=== PATIENT | female | born 1960 | race Caucasian/White ===

== ENCOUNTER 2020-03-19 20:12 | Emergency (ER) | payer OTHER, SELFPAY ==
--- NOTE | ~2020-03-19 | CT_ITS ---
EXAMINATION: CT ABDOMEN AND PELVIS WITHOUT CONTRAST CLINICAL INFORMATION: Bilateral flank pain. COMPARISON: None. TECHNIQUE: Contiguous axial thin section helical images of the abdomen and pelvis were performed without oral or IV contrast. The data set was reformatted in the coronal and sagittal planes and reviewed on an independent workstation. DLP: 766 mGy-cm. FINDINGS: There is mild dependent bibasilar atelectasis. The visualized lung bases are otherwise clear. The visualized portions of the heart are unremarkable. The liver is of normal size and attenuation without focal lesions nor intrahepatic biliary ductal dilation. A normal gallbladder is identified. There is no wall thickening or discernible pericholecystic fluid. The spleen, pancreas, adrenal glands are unremarkable. Both kidneys are of normal size and attenuation without hydronephrosis or nephrolithiasis. There is no abdominal free fluid. There is neither mesenteric nor retroperitoneal lymphadenopathy. Normal unopacified loops of small and large bowel are identified. There is no pelvic free fluid. The urinary bladder is unremarkable. There is neither pelvic nor inguinal lymphadenopathy. Bone windows: Neither sclerotic nor lytic bone lesions are identified. CT/CT abdomen pelvis wo con IMPRESSION: Neither acute abdominal nor pelvic inflammatory nor infectious processes. Neither hydronephrosis nor nephrolithiasis. Automated exposure control (Care Dose) Adjustment of the mA and/or kv according to patient size (this includes techniques or standardized protocols for targeted exams where dose is matched to indication / reason for exam; i.e. extremities or head).
[2020-03-19 20:48] VITALS: BP 148/80; PULSE 100; RESP 18; TEMP 37.3; O2SAT 97; BMI 33.6
[2020-03-19 22:41] LABS: MANUAL DIFF FLAG NO
[2020-03-19 22:44] LABS: Basophils Percent Auto 0.3 % (0-2); Eosinophils Absolute Auto 0.1 X10*3/uL (0.0-0.4); Eosinophils Percent Auto 1.1 % (0-4); Hematocrit 35.2 % (37-47); Hemoglobin 11.7 g/dl (12.0-16.0); Imm Gran Abs Auto 0.01 X10*3/uL (0.00-0.03); Imm Gran Pct Auto 0.1 % (0.0-0.4); Lymphocytes Absolute Auto 3.4 X10*3/uL (1.2-4.9); Mean Corpuscular HGB Conc 33.2 g/dl (31.0-35.0); Mean Corpuscular Hemoglobin 29.5 pg (27.0-33.0); Mean Corpuscular Volume 88.7 fL (80-98); Monocytes Absolute Auto 0.5 X10*3/uL (0.1-1.2); Monocytes Percent Auto 7.2 % (2-11); Neutrophils Absolute Auto 3.5 X10*3/uL (2.0-8.3); Neutrophils Percent Auto 46.3 % (45-73); Platelet Count 284 X10*3/uL (160-400); Red Blood Count 3.97 X10*6/uL (4.20-5.50); Red Cell Distribution Width 12.7 % (11.0-16.0); White Blood Count 7.5 X10*3/uL (4.8-10.8)
[2020-03-19 22:45] LABS: Glucose Urine UA NEG (NEG); Leukocyte Esterase Urine NEG (NEG); Nitrite Urine NEG (NEG); PH 5.5 (5.0-8.0); Specific Gravity - Urine >= 1.030 (1.005-1.025); Urine Blood NEG (NEG); Urine Ketones 5 MG/DL (NEG); Urine Protein NEG (NEG-TRACE)
[2020-03-19 22:48] LABS: Appearance Urine CLEAR; Color Urine YELLOW
[2020-03-19 23:06] LABS: Alanine Aminotransferase 19 U/L (0-31); Albumin Level 4.3 g/dL (3.5-5.0); Alkaline Phosphatase 102 U/L (39-117); Anion Gap 11 (12-20); Aspartate Amino Transferase 19 U/L (5-31); Bilirubin Direct < 0.2 mg/dL (0.0-0.5); Bilirubin Total 0.2 mg/dL (0.0-1.0); Blood Urea Nitrogen 23 mg/dL (9-16); Calcium 9.2 mg/dL (8.4-10.2); Carbon Dioxide 25 mmol/L (22-29); Chloride 109 mmol/L (96-108); Creatinine Clr Calc Pharmacy 51.2; Estimated Glomerular Filt Rate 46; Glucose Random 105 mg/dL (60-115); Lipase 33 U/L (8-78); Potassium 4.2 mmol/L (3.3-5.1); Sodium 141 mmol/L (135-145)
[2020-03-20 01:24] VITALS: BP 149/72; PULSE 65; RESP 18; TEMP 36.2; O2SAT 99
--- NOTE | 2020-03-20 03:00 | ED_ITS ---
HPI - General Adult General Chief complaint: Abdominal Pain Stated complaint: FLANK PAIN Time Seen by Provider: 03/20/20 02:53 Source: patient Mode of arrival: ambulatory Limitations: no limitations History of Present Illness HPI narrative: Patient comes to emergency room complaining of bilateral flank pain. Patient states it started approximately 2 weeks ago, intermittent. Patient states she has been seen and they states a few days ago, she was told that her creatinine is elevated. Patient denies dysuria, no fever or chills. At this time, patient states she has had the pain constantly bilaterally for last 7 hours. MD complaint: Bilateral flank pain Related Data Home Medications Medication Instructions Recorded Confirmed omeprazole 20 mg capsule,delayed 20 mg PO DAILY 11/11/19 11/11/19 release valacyclovir 500 mg tablet 500 mg PO DAILY 11/11/19 11/11/19 Previous Rx's Medication Instructions Recorded losartan 50 mg tablet 50 mg PO DAILY #90 tab 02/07/20 cyclobenzaprine 10 mg PO TID PRN #10 tab 03/20/20 Allergies Allergy/AdvReac Type Severity Reaction Status Date / Time ascorbic acid Allergy Unknown Unknown Verified 03/19/20 20:48 Review of Systems Review of Systems: Constitutional : No Weight loss, No Fever, No Chills, No Night Sweats, No Fatigue, No Malaise ENT/Mouth : No Hearing loss, No Ear Pain, No Nasal Congestion, No Sinus Pain, No Hoarseness, No sore throat, No Rhinorrhea, No Swallowing Difficulty Eyes: No Eye Pain, No Swelling, No Redness, No Foreign Body, No Discharge, No Vision Changes Cardiovascular : No Chest Pain, No SOB, No Dyspnea on Exertion, No Orthopnea, No Edema, No Palpitations Respiratory : No Cough, No Sputum, No Wheezing, No Smoke Exposure, No Dyspnea Gastrointestinal : No Nausea, No Vomiting, No Diarrhea, No Constipation, No abdominal Pain, No Hematochezia, No Melena, bilateral flank pain Genitourinary : no irregular bleeding, No Dysuria, No Urinary Frequency, No Hematuria, No Urinary Incontinence, No Urgency, No Flank Pain, No Urinary Flow Changes, No Hesitancy Musculoskeletal : No joint pain, No Myalgias, No Joint Swelling Skin : No Skin Lesions, No rash Neuro : No Weakness, No Numbness, No Paresthesias, No Loss of Consciousness, No Dizziness, No Headache Psych : No Anxiety/Panic, No Depression, No SI/HI/AH/VH, No Social Issues, Heme/Lymph: No Bruising, No Bleeding,No Lymphadenopathy Endocrine : No Polyuria, No Polydipsia, No Temperature Intolerance [facility] Past Medical History Medical History Jean esophagus History of mammogram Hyperlipidemia Mammogram normal (~05/2018) Normal colonoscopy (~06/08/18) Normal Pap smear Surgical History H/O colonoscopy History of esophagogastroduodenoscopy (EGD) Family History Family History (Updated 11/11/19 @ 09:00 by Bharti Myles [facility]) Father No problems noted. 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 Oriented X3. No acute distress. Well-appearing Eyes: Pupils equal, round and reactive to light. ENT: Pharynx normal. Neck: Normal inspection. Neck supple. No lymph nodes noted. No crepitus CVS: Normal heart rate and rhythm. Pulses normal. Normal S1 and S2 Respiratory: No respiratory distress. Breath sounds normal. No Wheezing. No rales Abdomen: Soft and nontender. No rigidity. No distention. good BS x4, negative CVA tenderness bilaterally Skin: Skin warm and dry. Normal skin color. Normal skin turgor. Extremities: No lower extremity edema. No lower extremity edema. No Lacerations. No Rash Neuro: Oriented X 3. No motor deficit. No sensory deficit. Moving all extermities. No slurred speech. Course Course Course Narrative: Discussed the CT scan and labs with the patient, patient instructed to follow-up with the primary care physician. Patient has bilateral back pain likely secondary to muscle spasms. Medical Decision Making Lab Data Result diagrams: 03/19/20 22:37 03/19/20 22:37 Labs: Lab Results 03/19/20 03/19/20 03/19/20 Range/Units 22:37 22:37 22:37 WBC 7.5 (4.8-10.8) X10*3/uL RBC 3.97 L (4.20-5.50) X10*6/uL Hgb 11.7 L (12.0-16.0) g/dl Hct 35.2 L (37-47) % MCV 88.7 (80-98) fL MCH 29.5 (27.0-33.0) pg MCHC 33.2 (31.0-35.0) g/dl RDW 12.7 (11.0-16.0) % Plt Count 284 (160-400) X10*3/uL MPV 10.0 (9.4-12.3) fL Immature Gran % (Auto) 0.1 (0.0-0.4) % Neut % (Auto) 46.3 (45-73) % Lymph % (Auto) 45.0 H (20-40) % [place] % (Auto) 7.2 (2-11) % Eos % (Auto) 1.1 (0-4) % Baso % (Auto) 0.3 (0-2) % Lymph # (Auto) 3.4 (1.2-4.9) X10*3/uL [place] # (Auto) 0.5 (0.1-1.2) X10*3/uL Eos # (Auto) 0.1 (0.0-0.4) X10*3/uL Baso # (Auto) 0.0 (0.0-0.2) X10*3/uL Abs Immat Gran (auto) 0.01 (0.00-0.03) X10*3/uL Absolute Neuts (auto) 3.5 (2.0-8.3) X10*3/uL Absolute Nucleated RBC 0.000 (0.0-0.012) X10*3/uL Nucleated RBC % (auto) 0.0 (0.0-0.2) /100WBC Sodium 141 (135-145) mmol/L Potassium 4.2 (3.3-5.1) mmol/L Chloride 109 H (96-108) mmol/L Carbon Dioxide 25 (22-29) mmol/L Anion Gap 11 L (12-20) BUN 23 H (9-16) mg/dL Creatinine 1.20 (0.5-1.4) mg/dL Estim Creat Clear Calc 51.2 Estimated GFR 46 Random Glucose 105 (60-115) mg/dL Calcium 9.2 (8.4-10.2) mg/dL Total Bilirubin 0.2 (0.0-1.0) mg/dL Direct Bilirubin < 0.2 (0.0-0.5) mg/dL AST 19 (5-31) U/L ALT 19 (0-31) U/L Alkaline Phosphatase 102 (39-117) U/L Total Protein 7.0 (6.5-8.0) g/dL Albumin 4.3 (3.5-5.0) g/dL Lipase 33 (8-78) U/L Urine Color YELLOW Urine Appearance CLEAR Urine pH 5.5 (5.0-8.0) Ur Specific [place] >= 1.030 H (1.005-1.025) Urine Protein NEG (NEG-TRACE) MG/DL Urine Glucose (UA) NEG (NEG) MG/DL Urine Ketones 5 (NEG) MG/DL Urine Blood NEG (NEG) Urine Nitrite NEG (NEG) Ur Leukocyte Esterase NEG (NEG) Imaging Data CT scan - abdomen: Radiologist's impression: FINDINGS: There is mild dependent bibasilar atelectasis. The visualized lung bases are otherwise clear. The visualized portions of the heart are unremarkable. The liver is of normal size and attenuation without focal lesions nor intrahepatic biliary ductal dilation. A normal gallbladder is identified. There is no wall thickening or discernible pericholecystic fluid. The spleen, pancreas, adrenal glands are unremarkable. Both kidneys are of normal size and attenuation without hydronephrosis or nephrolithiasis. There is no abdominal free fluid. There is neither mesenteric nor retroperitoneal lymphadenopathy. Normal unopacified loops of small and large bowel are identified. There is no pelvic free fluid. The urinary bladder is unremarkable. There is neither pelvic nor inguinal lymphadenopathy. Bone windows: Neither sclerotic nor lytic bone lesions are identified. CT/CT abdomen pelvis wo con IMPRESSION: Neither acute abdominal nor pelvic inflammatory nor infectious processes. Neither hydronephrosis nor nephrolithiasis. Discharge Plan Discharge Clinical Impression: Bilateral back pain Qualifiers: Back pain location: thoracic back pain Chronicity: unspecified Qualified Code(s): M54.6 - Pain in thoracic spine Patient Disposition: Home, Self-Care Instructions: Muscle Spasm (ED) Additional Instructions: Please follow-up with your primary care physician tomorrow. If you have any worsening or new symptoms, please return to the emergency room or call 911 Prescriptions: New cyclobenzaprine 10 mg tablet 10 mg PO TID PRN (Reason: muscle spasm) Qty: 10 RF: 0 No Action losartan 50 mg tablet 50 mg PO DAILY Qty: 90 RF: 3 valacyclovir [Valtrex] 500 mg tablet 500 mg PO DAILY RF: 0 omeprazole 20 mg capsule,delayed release(DR/EC) 20 mg PO DAILY RF: 0
== END 2020-03-20 04:11 | disposition home or self-care (01) ==
PROVIDERS: Emergency Provider Emergency Medicine; PCP Internal Medicine
DX: M54.6 Pain in thoracic spine (principal); R10.9 Unspecified abdominal pain; Z79.899 Other long term (current) drug therapy
CPT/HCPCS: 36415; 74176; 80048; 80076; 81003; 83690; 85025; 99283; 99284

== ENCOUNTER 2020-04-27 07:57 | Outpatient (REF) | payer OTHER, SELFPAY ==
--- NOTE | ~2020-04-27 | US_ITS ---
EXAMINATION: US ABDOMEN COMPLETE CLINICAL INFORMATION: Unspecified abdominal pain. COMPARISON: CT abdomen and pelvis 03/20/2020. Ultrasound abdomen complete 07/14/2018. TECHNIQUE: Real-time imaging of the abdominal viscera. FINDINGS: PANCREAS: Normal. ABDOMINAL AORTA: The proximal, mid, and distal segments are normal in caliber. INFERIOR VENA CAVA: Visualized portions are normal. LIVER: The liver is normal in size and smooth in contour. Although the hepatic parenchymal echogenicity appears borderline increased, there is no hepatic steatosis suggested on recent noncontrast CT. The parenchyma areas homogeneous. No focal hepatic parenchymal lesion. No intrahepatic ductal dilatation. Color Doppler shows portal flow towards the liver. GALLBLADDER: Normal. The gallbladder is physiologically distended without evidence of stones, sludge, polyps, wall thickening or pericholecystic fluid. COMMON BILE DUCT: Normal in caliber measuring 0.4 cm in diameter. RIGHT KIDNEY: Normal. No hydronephrosis. No renal calculi or focal parenchymal lesions. The kidney measures 10.0 cm in maximum dimension. LEFT KIDNEY: Normal. No hydronephrosis. No renal calculi or focal parenchymal lesions. The kidney measures 9.9 cm in maximum dimension. SPLEEN: Normal. The spleen measures 8.0 cm in maximum dimension. FREE FLUID: None. US/US abdomen complete IMPRESSION: 1. No cholelithiasis or ductal dilatation. 2. No hydronephrosis.
== END 2020-04-27 07:58 | disposition home or self-care (01) ==
LOC: HO.US 07:57
PROVIDERS: PCP Internal Medicine; Visit Provider Internal Medicine
DX: R10.9 Unspecified abdominal pain (principal); N28.9 Disorder of kidney and ureter, unspecified; E78.5 Hyperlipidemia, unspecified; I10 Essential (primary) hypertension
CPT/HCPCS: 76700

== ENCOUNTER 2020-04-30 08:04 | Outpatient (REF) | payer OTHER, SELFPAY ==
[2020-04-30 11:19] LABS: Hematocrit 36.7 % (37-47); Immature Retic Fraction 9.3 % (3.0-15.9); Mean Corpuscular HGB Conc 32.7 g/dl (31.0-35.0); Mean Corpuscular Hemoglobin 29.3 pg (27.0-33.0); Mean Corpuscular Volume 89.5 fL (80-98); Mean Platelet Volume 10.9 fL (9.4-12.3); Platelet Count 277 X10*3/uL (160-400); Red Cell Distribution Width 12.8 % (11.0-16.0); Reticulocyte Percent 1.6 % (0.5-1.8); Reticulocytes Absolute 0.064 X10*6/uL (0.026-0.095); White Blood Count 4.8 X10*3/uL (4.8-10.8)
[2020-04-30 11:45] LABS: Alanine Aminotransferase 21 U/L (0-31); Alkaline Phosphatase 88 U/L (39-117); Anion Gap 15 (12-20); Aspartate Amino Transferase 19 U/L (5-31); Bilirubin Total 0.2 mg/dL (0.0-1.0); Blood Urea Nitrogen 18 mg/dL (9-16); Carbon Dioxide 23 mmol/L (22-29); Chloride 107 mmol/L (96-108); Estimated Glomerular Filt Rate > 60; Glucose Fasting 103 mg/dL (60-99); Iron 76 mcg/dL (30-160); Percent Iron Saturation 25 % (15-50); Potassium 4.2 mmol/L (3.3-5.1); Sodium 141 mmol/L (135-145); Total Iron Binding Capacity 310 mcg/dL (228-428); Total Protein 6.7 g/dL (6.5-8.0); Unsaturated Iron Binding 234 ug/dL
[2020-04-30 12:27] LABS: Glucose Urine UA NEG (NEG); Leukocyte Esterase Urine NEG (NEG); Nitrite Urine NEG (NEG); PH 5.5 (5.0-8.0); Specific Gravity - Urine >= 1.030 (1.005-1.025); Urine Blood NEG (NEG); Urine Ketones NEG (NEG); Urine Protein NEG (NEG-TRACE)
[2020-04-30 12:39] LABS: Appearance Urine CLEAR; Color Urine YELLOW
== END 2020-04-30 08:05 | disposition home or self-care (01) ==
LOC: HO.HMGCLDS 08:04
PROVIDERS: PCP Internal Medicine; Visit Provider Internal Medicine
DX: R10.9 Unspecified abdominal pain (principal); E78.5 Hyperlipidemia, unspecified; I10 Essential (primary) hypertension; N28.9 Disorder of kidney and ureter, unspecified
CPT/HCPCS: 36415; 80053; 81003; 83540; 85027; 85045

== ENCOUNTER 2021-08-14 08:27 | Outpatient (REF) | payer OTHER, SELFPAY ==
[2021-08-14 11:30] LABS: Appearance Urine CLEAR; Color Urine YELLOW; Glucose Urine UA NEG (NEG); Leukocyte Esterase Urine NEG (NEG); Nitrite Urine NEG (NEG); PH 5.5 (5.0-8.0); Urine Blood NEG (NEG); Urine Ketones NEG (NEG); Urine Protein NEG (NEG-TRACE)
[2021-08-14 11:31] LABS: MANUAL DIFF FLAG NO
[2021-08-14 11:45] LABS: Basophils Percent Auto 0.6 % (0-2); Eosinophils Absolute Auto 0.1 X10*3/uL (0.0-0.4); Eosinophils Percent Auto 1.3 % (0-4); Hematocrit 37.2 % (37.0-47.0); Hemoglobin 12.4 g/dl (12.0-16.0); Imm Gran Abs Auto 0.01 X10*3/uL (0.00-0.03); Imm Gran Pct Auto 0.2 % (0.0-0.4); Lymphocytes Absolute Auto 2.6 X10*3/uL (1.2-4.9); Lymphocytes Percent Auto 48.6 % (20-40); Mean Corpuscular HGB Conc 33.3 g/dl (31.0-35.0); Mean Corpuscular Hemoglobin 29.2 pg (27.0-33.0); Mean Corpuscular Volume 87.5 fL (80.0-98.0); Mean Platelet Volume 10.7 fL (9.4-12.3); Monocytes Absolute Auto 0.3 X10*3/uL (0.1-1.2); Monocytes Percent Auto 6.3 % (2-11); Neutrophils Absolute Auto 2.3 x10*3/uL (2.0-8.3); Platelet Count 296 X10*3/uL (160-400); Red Blood Count 4.25 X10*6/uL (4.20-5.50); Red Cell Distribution Width 12.9 % (11.0-16.0); White Blood Count 5.4 X10*3/uL (4.8-10.8)
[2021-08-14 11:54] LABS: RBC Urine 0 /HPF (0); WBC Urine 0 /HPF (0-4)
[2021-08-14 12:01] LABS: Alanine Aminotransferase 24 U/L (0-31); Albumin Level 4.2 g/dL (3.5-5.0); Alkaline Phosphatase 101 U/L (39-117); Anion Gap 10 (12-20); Aspartate Amino Transferase 19 U/L (5-31); Bilirubin Total 0.4 mg/dL (0.0-1.0); Blood Urea Nitrogen 19 mg/dL (9-16); Calcium 9.2 mg/dL (8.4-10.2); Carbon Dioxide 24 mmol/L (22-29); Chloride 107 mmol/L (96-108); Cholesterol 218 mg/dL; Estimated Glomerular Filt Rate 58; Glucose Fasting 102 mg/dL (60-99); HDL Cholesterol 59 mg/dL; LDL Cholesterol Calculated 146 mg/dl; Potassium 4.4 mmol/L (3.3-5.1); Sodium 137 mmol/L (135-145); Total Protein 6.9 g/dL (6.5-8.0); Triglycerides 68 mg/dL
[2021-08-14 12:28] LABS: TSH reflex Free T4 2.29 uIU/mL (0.32-4.0); Vitamin D 25-OH Total 25.5 ng/mL (>30)
[2021-08-14 12:41] LABS: Vitamin B12 451 pg/mL (200-900)
== END 2021-08-14 08:28 | disposition home or self-care (01) ==
LOC: HO.HMGCLDS 08:27
PROVIDERS: Visit Provider Internal Medicine
DX: E78.5 Hyperlipidemia, unspecified (principal); I10 Essential (primary) hypertension; Z00.00 Encounter for general adult medical examination without abnormal findings
CPT/HCPCS: 36415; 80053; 80061; 81001; 82306; 82607; 82746; 84443; 85025

== ENCOUNTER 2021-10-08 08:27 | Outpatient (REF) | payer OTHER, SELFPAY ==
--- NOTE | ~2021-10-08 | US_ITS ---
EXAMINATION: US ABDOMEN COMPLETE CLINICAL INFORMATION: Unspecified abdominal pain. COMPARISON: Ultrasound abdomen complete 04/27/2020 and 07/14/2018. CT abdomen and pelvis 03/20/2020. TECHNIQUE: Real-time imaging of the abdominal viscera. FINDINGS: PANCREAS: The visualized proximal portion of the pancreas is unremarkable. The distal portion is obscured secondary to overlying bowel gas. ABDOMINAL AORTA: The proximal, mid, and distal segments are normal in caliber. INFERIOR VENA CAVA: Visualized portions are normal. LIVER: The liver is normal in size. The liver contour is normal. There is diffusely increased liver parenchymal echogenicity, consistent with hepatic steatosis. No focal hepatic lesion. There is no intrahepatic biliary duct dilatation seen. GALLBLADDER: The gallbladder is physiologically distended without evidence of stones, sludge, polyps, wall thickening or pericholecystic fluid. No right upper quadrant tenderness reported during the exam. COMMON BILE DUCT: Normal in caliber measuring 0.4 cm in diameter. RIGHT KIDNEY: No hydronephrosis. No renal calculi or focal parenchymal lesions. The kidney measures 9.2 cm in maximum dimension. LEFT KIDNEY: No hydronephrosis. No renal calculi or focal parenchymal lesions. The kidney measures 9.0 cm in maximum dimension. SPLEEN: Normal. The spleen measures 8.8 cm in maximum dimension. FREE FLUID: None. US/US abdomen complete IMPRESSION: Increased hepatic echogenicity consistent with steatosis. No additional abnormality identified.
== END 2021-10-08 08:28 | disposition home or self-care (01) ==
LOC: HO.US 08:27
PROVIDERS: Visit Provider Internal Medicine
DX: R10.9 Unspecified abdominal pain (principal)
CPT/HCPCS: 76700

== ENCOUNTER 2022-08-19 10:33 | Outpatient (AMB) | payer OTHER, SELFPAY ==
--- NOTE | 2022-08-19 10:41 | MHC.PC.OV ---
Vital Signs 08/19/22 10:43 Height 5 ft 4 in Weight 213 lb BMI 36.6 BP 120/74 Blood Pressure Location Lt brachial Position Sitting Pulse 73 Pulse Source Pulse Oximeter Pulse Oximetry (%) 96 Oxygen Delivery Method Room Air Intake Visit Reasons: Annual PE Intake Note: Pt is here today for PE. Allergies ascorbic acid Allergy (Unknown, Verified 08/19/22 10:46) Rash Medication List - Last Reconciled 08/19/22 by Jacy Llanos MD amlodipine 7.5 mg PO DAILY compress.stocking,knee,reg,lrg 10-20 mmHg omeprazole 20 mg PO DAILY valacyclovir (Valtrex) 500 mg PO DAILY Tobacco use date assessed: 08/19/22 Dental Screening Dental Screen Date: 08/19/22 Did you have a dental visit in the last 12 months?: Yes Did you have a dental problem in the last 6 months where you did not have access to dental care?: No Was dental information given to patient?: Patient has dentist HPI Annual PE HPI Details Patient presents for physical. She reports intermittent right upper quadrant abdominal discomfort worse after eating on and off a few times a month. Patient also complains of lower abdominal and pelvic pressure and increased urinary frequency but no dysuria, back pain,hematuria fever chills change in bowel habits. [facility] Medical History Abdominal pain Jean esophagus History of mammogram Hyperlipidemia Mammogram normal (~05/2018) Normal colonoscopy (~06/08/18) Normal Pap smear Renal insufficiency Surgical History H/O colonoscopy History of appendectomy History of esophagogastroduodenoscopy (EGD) Family History Father Asthma Mother HTN (hypertension) Afib Social History Housing: House Alcohol intake: never Patient Tobacco Use Status: Never used Tobacco e-Cigarette/Vaping Use: Never Used Current occupational status: employed Cognitive needs: No Hearing needs: No Vision needs: Yes Questionnaire PHQ-9 Over the last 2 weeks, how often have you been bothered by any of the following problems? 1. Little interest or pleasure in doing things: not at all 2. Feeling down, depressed, or hopeless: not at all 3. Trouble falling or staying asleep, or sleeping too much: not at all 4. Feeling tired or having little energy: not at all 5. Poor appetite or overeating: not at all 6. Feeling bad about yourself - or that you are a failure or have let yourself or your family down: not at all 7. Trouble concentrating on things, such as reading the newspaper or watching television: not at all 8. Moving or speaking so slowly that other people could have noticed. Or the opposite - being so fidgety or restless that you have been moving around a lot more than usual: not at all 9. Thoughts that you would be better off or of hurting yourself in some way: not at all Total score: 0 Depression Screening Interpretation: Negative Source: Developed by Drs. Nicolás Baez, Anh Salinas, Yaya Arita and colleagues, with an educational vinay from [employer]. Thrive Questionnaire Date Thrive assessed: 08/19/22 I am a: Patient What is your living situation today?: I have a steady place to live Within the past 12 months, did the food you bought not last and you didn't have the money to get more?: Never true Within the past 12 months, did you worry whether your food would run out before you got money to buy more?: Never true Do you have trouble paying for medicines?: No Do you have trouble getting transportation to medical appointments?: No Do you have trouble paying your heating and electricity bill?: No Do you have trouble taking care of your child, family member or friend?: No Do you have trouble with day-to-day activities such as bathing, preparing meals, shopping, managing finances, etc.?: No Are you currently unemployed and looking for a job?: No Are you interested in more education?: No Please select the resources that you would like help with: None Currently or been in a relationship where the following occur: no concerns reported AUDIT C Alcohol Use Questionnaire (AUDIT-C) 1. How often do you have a drink containing alcohol?: Never 3. How often do you have six or more drinks on one occasion?: Never Total Score: 0 LUCIA-7 AMB Questionnaire LUCIA-7 Date LUCIA - 7 assessed: 08/19/22 Feeling nervous, anxious, or on edge: 0 = Not at all Not being able to stop or control worryin = Not at all Worrying too much about different things: 0 = Not at all Trouble relaxin = Not at all Being so restless that it is hard to sit still: 0 = Not at all Becoming easily annoyed or irritable: 0 = Not at all Feeling afraid as if something awful might happen: 0 = Not at all Total LUCIA-7 score (0-4 normal; 5-9 mild; 10-14 moderate; 15-21 severe): 0 Source: Developed by Drs. Nicolás Baez, Anh Salinas, Yaya Arita and colleagues, with an educational vinay from [employer]. Review of Systems Const All systems reviewed & are unremarkable except as noted in HPI and below Reports no additional complaints Eyes Reports no additional complaints ENT Reports no additional complaints Card Reports no additional complaints Resp Reports no additional complaints GI Reports no additional complaints Reports no additional complaints Physical exam (Primary Care) Vital Signs: Last Vital Signs Pulse 73 08/19/22 10:43 BP 120/74 08/19/22 10:43 Pulse Ox 96 08/19/22 10:43 Oxygen Delivery Method Room Air 08/19/22 10:43 BMI result Body Mass Index 36.6 Tobacco/Smoking Status: Tobacco use Status Tobacco use date assessed 08/19/22 08/19/22 10:49 Patient Tobacco Use Status Never used Tobacco 08/19/22 10:49 e-Cigarette/Vaping Use Never Used 08/19/22 10:41 PHQ-9: PHQ-9 Score PHQ-9: Total score 0 08/19/22 10:49 Depression Screening Interpretation: Negative Thrive Assessment: Date of Thrive Assessment Date Thrive assessed 08/19/22 08/19/22 10:49 Currently or been in a relationship where the following occur: no concerns reported Const General: no acute distress HENMT Head: Yes normal to inspection Ears: hearing grossly normal bilaterally Face and sinus: Yes normal facial exam Mouth: Normal oral and palatal mucosa present Throat: Yes posterior oropharynx normal Eyes General: appearance normal, both eyes and all related structures Neck Neck: Yes no lymphadenopathy and Yes supple Resp Effort & Inspection: normal respiratory effort Auscultation: clear to auscultation bilaterally Cardio Rhythm: regular rhythm Heart sounds: S1 normal heart sound present and S2 normal heart sound present GI Inspection: Yes normal to inspection Palpation (GI): Soft to palpation Percussion: Yes normal to percussion Assessment and Plan Assessment & Plan (1) Renal insufficiency: Code(s): N28.9 - Disorder of kidney and ureter, unspecified Plan: Patient will return for fasting labs (2) HTN (hypertension): Code(s): I10 - Essential (primary) hypertension Plan: Continue amlodipine (3) Hyperlipidemia: Code(s): E78.5 - Hyperlipidemia, unspecified Plan: Continue low-cholesterol diet. Patient return for fasting labs (4) Annual physical exam: Comment: well-balanced diet regular exercise and weight loss discussed with the patient Code(s): Z00.00 - Encounter for general adult medical examination without abnormal findings Plan: Schedule mammogram patient is up to date with colonoscopy and pelvic exam by boiler plant operator (5) Abdominal pain: Comment: RUQ pain Code(s): R10.9 - Unspecified abdominal pain Plan: Obtain abdominal ultrasound to rule out cholelithiasis (6) Urinary retention: Code(s): R33.9 - Retention of urine, unspecified Plan: Check bladder ultrasound for urinary retention (7) Ovarian cyst: Code(s): N83.209 - Unspecified ovarian cyst, unspecified side Plan: Stable pelvic ultrasound for history of ovarian cyst Orders: Orders Comprehensive [place]. Panel Fast Today E78.5 - Hyperlipidemia, unspecified, I10 - Essential (primary) hypertension, N28.9 - Disorder of kidney and ureter, unspecified, Z00.00 - Encounter for general adult medical examination without abnormal findings Lipid Panel Today E78.5 - Hyperlipidemia, unspecified, I10 - Essential (primary) hypertension, N28.9 - Disorder of kidney and ureter, unspecified, Z00.00 - Encounter for general adult medical examination without abnormal findings TSH reflex Free T4 Today E78.5 - Hyperlipidemia, unspecified, I10 - Essential (primary) hypertension, N28.9 - Disorder of kidney and ureter, unspecified, Z00.00 - Encounter for general adult medical examination without abnormal findings Complete Blood Count Auto Diff Today E78.5 - Hyperlipidemia, unspecified, I10 - Essential (primary) hypertension, N28.9 - Disorder of kidney and ureter, unspecified, Z00.00 - Encounter for general adult medical examination without abnormal findings Urine Culture Today N28.9 - Disorder of kidney and ureter, unspecified UA CC w/rflx Micro + Cult Today E78.5 - Hyperlipidemia, unspecified, I10 - Essential (primary) hypertension, N28.9 - Disorder of kidney and ureter, unspecified, Z00.00 - Encounter for general adult medical examination without abnormal findings US abdomen complete Today R10.9 - Unspecified abdominal pain MM screening mammo BI Today Z12.31 - Encounter for screening mammogram for malignant neoplasm of breast US bladder Today N83.209 - Unspecified ovarian cyst, unspecified side, R33.9 - Retention of urine, unspecified US pelvic and transvaginal Today N83.209 - Unspecified ovarian cyst, unspecified side, R33.9 - Retention of urine, unspecified Medications: New amlodipine 7.5 mg tab daily 7.5 mg (1.5 x 5 mg) PO DAILY 135 tabs 3RF valacyclovir (Valtrex) 500 mg PO DAILY 30 tabs 3RF Coding Level of Care Code Est Pt Prev Care 40-64y(43725) Diagnoses Renal insufficiency N28.9 HTN (hypertension) I10 Hyperlipidemia E78.5 Annual physical exam Z00.00 Abdominal pain R10.9 Urinary retention R33.9 Ovarian cyst N83.209
[2022-08-19 10:43] VITALS: BP 120/74; PULSE 73; O2SAT 96; BMI 36.6
== END 2022-08-19 11:35 | disposition home or self-care (01) ==
PROVIDERS: Visit Provider Internal Medicine
DX: N28.9 Disorder of kidney and ureter, unspecified (principal); I10 Essential (primary) hypertension; E78.5 Hyperlipidemia, unspecified; Z00.00 Encounter for general adult medical examination without abnormal findings; R10.9 Unspecified abdominal pain; R33.9 Retention of urine, unspecified; N83.209 Unspecified ovarian cyst, unspecified side
CPT/HCPCS: 99396

== ENCOUNTER 2022-09-01 08:10 | Outpatient (REF) | payer OTHER, SELFPAY ==
[2022-09-01 11:37] LABS: MANUAL DIFF FLAG NO
[2022-09-01 11:46] LABS: Appearance Urine Clear; Color Urine Yellow; Glucose Urine UA Negative (Negative); Leukocyte Esterase Urine Negative (Negative); Nitrite Urine Negative (Negative); PH 5.5 (5.0-9.0); Urine Blood Negative (Negative); Urine Ketones Negative (Negative); Urine Protein Negative (Neg-Trace)
[2022-09-01 11:47] LABS: Basophils Percent Auto 0.4 % (0-2); Eosinophils Absolute Auto 0.1 X10*3/uL (0.0-0.4); Eosinophils Percent Auto 1.4 % (0-4); Hematocrit 37.8 % (37.0-47.0); Imm Gran Abs Auto 0.01 X10*3/uL (0.00-0.03); Imm Gran Pct Auto 0.2 % (0.0-0.4); Lymphocytes Absolute Auto 2.7 X10*3/uL (1.2-4.9); Lymphocytes Percent Auto 51.7 % (20-40); Mean Corpuscular HGB Conc 31.7 g/dl (31.0-35.0); Mean Corpuscular Volume 88.1 fL (80.0-98.0); Mean Platelet Volume 11.1 fL (9.4-12.3); Monocytes Absolute Auto 0.4 X10*3/uL (0.1-1.2); Neutrophils Percent Auto 39.3 % (45-73); Platelet Count 266 X10*3/uL (160-400); Red Blood Count 4.29 X10*6/uL (4.20-5.50); Red Cell Distribution Width 13.6 % (11.0-16.0); White Blood Count 5.2 X10*3/uL (4.8-10.8)
[2022-09-01 12:05] LABS: Alanine Aminotransferase 18 U/L (0-31); Alkaline Phosphatase 97 U/L (39-117); Anion Gap 12 (12-20); Aspartate Amino Transferase 18 U/L (5-31); Bilirubin Total 0.4 mg/dL (0.0-1.0); Blood Urea Nitrogen 17 mg/dL (9-16); Calcium 9.3 mg/dL (8.4-10.2); Carbon Dioxide 23 mmol/L (22-29); Chloride 109 mmol/L (96-108); Cholesterol 195 mg/dL; Estimated Glomerular Filt Rate > 60; Glucose Fasting 104 mg/dL (60-99); HDL Cholesterol 55 mg/dL; LDL Cholesterol Calculated 127 mg/dl; Potassium 4.1 mmol/L (3.3-5.1); Sodium 140 mmol/L (135-145); Total Protein 7.1 g/dL (6.5-8.0); Triglycerides 67 mg/dL
[2022-09-01 12:11] LABS: TSH reflex Free T4 2.39 uIU/mL (0.32-4.0)
== END 2022-09-01 08:11 | disposition home or self-care (01) ==
LOC: HO.HMGCLDS 08:10
PROVIDERS: PCP Internal Medicine; Visit Provider Internal Medicine
DX: Z00.00 Encounter for general adult medical examination without abnormal findings (principal); I10 Essential (primary) hypertension; N28.9 Disorder of kidney and ureter, unspecified; E78.5 Hyperlipidemia, unspecified
CPT/HCPCS: 36415; 80053; 80061; 81003; 84443; 85025; 87086

== ENCOUNTER 2022-09-04 11:02 | Outpatient (REF) | payer OTHER, SELFPAY ==
--- NOTE | ~2022-09-04 | US_ITS ---
EXAMINATION: US PELVIS LIMITED (BLADDER) CLINICAL INFORMATION: Retention of urine, unspecified. COMPARISON: Ultrasound abdomen complete 10/08/2021 and 04/27/2020. CT abdomen and pelvis 03/20/2020. TECHNIQUE: Real-time imaging of the bladder. FINDINGS: BLADDER: Moderately distended. Bilateral ureteral jets are demonstrated. Prevoid bladder volume is 171 mL. Postvoid bladder volume is 5.1 mL. US/US bladder IMPRESSION: Postvoid bladder volume is 5.1 mL.
== END 2022-09-04 11:03 | disposition home or self-care (01) ==
LOC: HO.US 11:02
PROVIDERS: PCP Internal Medicine; Visit Provider Internal Medicine
DX: R33.9 Retention of urine, unspecified (principal); N83.209 Unspecified ovarian cyst, unspecified side
CPT/HCPCS: 76857

== ENCOUNTER 2022-09-05 10:24 | Outpatient (REF) | payer OTHER, SELFPAY ==
--- NOTE | ~2022-09-05 | US_ITS ---
EXAMINATION: US ABDOMEN COMPLETE CLINICAL INFORMATION: Unspecified abdominal pain. COMPARISON: Ultrasound bladder 09/04/2022. Ultrasound abdomen complete 10/08/2021. CT abdomen and pelvis 03/20/2020. TECHNIQUE: Real-time imaging of the abdominal viscera. Technically suboptimal study secondary to body habitus. FINDINGS: PANCREAS: Limited visualization of pancreatic tail and head. Imaged portion of pancreatic body is unremarkable. ABDOMINAL AORTA: Limited visualization. Imaged portions of abdominal aorta are nonaneurysmal. INFERIOR VENA CAVA: Visualized portions are normal. LIVER: Diffuse increase in echogenicity of the liver is characteristic of primary hepatocellular disease, possibly due to hepatic steatosis and severely limits visualization. GALLBLADDER: No gallstones. No gallbladder wall thickening. COMMON BILE DUCT: Normal in caliber measuring 0.44 cm in diameter. RIGHT KIDNEY: No hydronephrosis. No renal calculi. Limited visualization. The kidney measures 10.3 cm in maximum dimension. LEFT KIDNEY: No hydronephrosis. No renal calculi. Limited visualization. The kidney measures 9.9 cm in maximum dimension. SPLEEN: Normal. The spleen measures 9.1 cm in maximum dimension. FREE FLUID: None. US/US abdomen complete IMPRESSION: 1. Diffuse increase in echogenicity of the liver is characteristic of primary hepatocellular disease, possibly due to hepatic steatosis and severely limits visualization. 2. Limited visualization due to bowel gas and body habitus. CT scan should be considered for better visualization.
--- NOTE | ~2022-09-05 | US_ITS ---
EXAMINATION: US PELVIS CLINICAL INFORMATION: Ovarian cyst. COMPARISON: CT abdomen and pelvis 03/20/2020. Pelvic ultrasound 09/08/2020. TECHNIQUE: Ultrasound of the pelvis is performed using both transabdominal transducer along with Doppler. Limited visualization due to bowel gas. Transvaginal ultrasound imaging attempted by perfect bind machine operator, however, the patient was unable to tolerate probe for transvaginal portion of exam per perfect bind machine operator, further limiting visualization. FINDINGS: Uterus: The uterus is anteverted and measures 5.4 x 2.1 x 3.5 cm. The double wall endometrial thickness is 3 mm. The uterus is smooth in contour and has normal myometrial echogenicity. No visible fibroid. Adnexa: Bilateral ovaries were not visualized. Limited visualization due to bowel gas. Patient unable to tolerate probe for transvaginal portion of exam per perfect bind machine operator, further limiting visualization. No significant free fluid. US/US pelvic and transvaginal IMPRESSION: 1. No discrete fibroids. 2. Endometrial thickness 0.3 cm. 3. Bilateral ovaries were not visualized. Limited visualization due to bowel gas. 4. Transvaginal ultrasound imaging attempted by perfect bind machine operator, however, the patient was unable to tolerate probe for transvaginal portion of exam per perfect bind machine operator, further limiting visualization.
== END 2022-09-05 10:25 | disposition home or self-care (01) ==
LOC: HO.HMGCX 10:24
PROVIDERS: PCP Internal Medicine; Visit Provider Internal Medicine
DX: R10.9 Unspecified abdominal pain (principal); R33.9 Retention of urine, unspecified; N83.209 Unspecified ovarian cyst, unspecified side
CPT/HCPCS: 76700; 76830; 76856

== ENCOUNTER 2023-08-25 07:43 | Outpatient (AMB) | payer OTHER, SELFPAY ==
[2023-08-25 07:59] VITALS: BP 128/80; PULSE 84; O2SAT 94; BMI 37.9
--- NOTE | 2023-08-25 07:59 | A.OFFPC_ITS ---
Vital Signs 08/25/23 07:59 Height 5 ft 2 in Weight 207 lb BMI 37.9 BP 128/80 Blood Pressure Location Lt brachial Position Sitting Pulse 84 Pulse Source Pulse Oximeter Pulse Oximetry (%) 94 Oxygen Delivery Method Room Air Intake Visit Reasons: PE - see comments Intake Note: Pt is here today for her PE Allergies ascorbic acid Allergy (Unknown, Verified 08/25/23 07:59) Rash Medication List - Last Reconciled 08/25/23 by Jacy Llanos MD amlodipine 7.5 mg (1.5 x 5 mg) PO DAILY compress.stocking,knee,reg,lrg 10-20 mmHg omeprazole 20 mg PO DAILY valacyclovir (Valtrex) 500 mg PO DAILY Tobacco use date assessed: 08/25/23 Dental Screening Dental Screen Date: 08/25/23 Did you have a dental visit in the last 12 months?: Yes Did you have a dental problem in the last 6 months where you did not have access to dental care?: Yes Was dental information given to patient?: Patient has dentist HPI PE - see comments HPI Details Pt presents for PE. She reports episodes of elevated blood pressure. She has not been taking amlodipine because of side effects. Patient has been taking olmesartan with hydrochlorothiazide which she got from her friend for the last few weeks. She has been tolerating medication well. Patient reports of chronic bilateral lower extremity burning sensation and swelling. She used to see vascular surgeon for venous insufficiency and has been wearing support knee- highs occasionally. Patient complains of dyspnea on exertion when walking up the stairs or short distance. She is concerned about her heart. She denies chest pain palpitations PND or orthopnea. Patient complains of chronic right upper quadrant abdominal discomfort worse after eating. She denies nausea vomiting change in bowel habits constipation diarrhea hematochezia FOR[facility]LY [facility], [facility] Medical History Renal insufficiency Abdominal pain Jean esophagus Hyperlipidemia Normal Pap smear Mammogram normal (~05/2018) Normal colonoscopy (~06/08/18) History of mammogram Surgical History History of appendectomy History of esophagogastroduodenoscopy (EGD) H/O colonoscopy Family History Father Asthma Mother HTN (hypertension) Afib Social History Housing: House Alcohol intake: never Patient Tobacco Use Status: Never used Tobacco e-Cigarette/Vaping Use: Never Used Current occupational status: employed Cognitive needs: No Hearing needs: No Vision needs: Yes Questionnaire PHQ-9 Over the last 2 weeks, how often have you been bothered by any of the following problems? 1. Little interest or pleasure in doing things: not at all 2. Feeling down, depressed, or hopeless: not at all 3. Trouble falling or staying asleep, or sleeping too much: not at all 4. Feeling tired or having little energy: not at all 5. Poor appetite or overeating: not at all 6. Feeling bad about yourself - or that you are a failure or have let yourself or your family down: not at all 7. Trouble concentrating on things, such as reading the newspaper or watching television: not at all 8. Moving or speaking so slowly that other people could have noticed. Or the opposite - being so fidgety or restless that you have been moving around a lot more than usual: not at all 9. Thoughts that you would be better off or of hurting yourself in some way: not at all Total score: 0 Depression Screening Interpretation: Negative Depression Screening Done: Yes 82156 - PHQ-9 Billing: Yes Source: Developed by Drs. Nicolás Baez, Anh Salinas, Yaya Arita and colleagues, with an educational vinay from [employer]. Thrive Questionnaire Date Thrive assessed: 08/25/23 I am a: Patient What is your living situation today?: I have a steady place to live Within the past 12 months, did the food you bought not last and you didn't have the money to get more?: Often true Within the past 12 months, did you worry whether your food would run out before you got money to buy more?: I choose not to answer this question Do you have trouble paying for medicines?: No Do you have trouble getting transportation to medical appointments?: No Do you have trouble paying your heating and electricity bill?: I choose not to answer this question Do you have trouble taking care of your child, family member or friend?: No Do you have trouble with day-to-day activities such as bathing, preparing meals, shopping, managing finances, etc.?: I choose not to answer this question Are you currently unemployed and looking for a job?: Yes Are you interested in more education?: No Please select the resources that you would like help with: Housing/Senior Living Currently or been in a relationship where the following occur: No concerns reported THRIVE Score: 1 AUDIT C Alcohol Use Questionnaire (AUDIT-C) 1. How often do you have a drink containing alcohol?: Never Total Score: 0 LUCIA-7 AMB Questionnaire LUCIA-7 Date LUCIA - 7 assessed: 08/25/23 Feeling nervous, anxious, or on edge: 0 = Not at all Not being able to stop or control worryin = Not at all Worrying too much about different things: 0 = Not at all Trouble relaxin = Not at all Being so restless that it is hard to sit still: 0 = Not at all Becoming easily annoyed or irritable: 0 = Not at all Feeling afraid as if something awful might happen: 0 = Not at all Total LUCIA-7 score (0-4 normal; 5-9 mild; 10-14 moderate; 15-21 severe): 0 Source: Developed by Drs. Nicolás Baez, Anh Salinas, Yaya Arita and colleagues, with an educational vinay from [employer]. Review of Systems Const All systems reviewed & are unremarkable except as noted in HPI and below Reports no additional complaints Eyes Reports no additional complaints ENT Reports no additional complaints Card Reports no additional complaints Resp Reports no additional complaints GI Reports no additional complaints Reports no additional complaints Physical exam (Primary Care) Vital Signs: Last Vital Signs Pulse 84 08/25/23 07:59 BP 128/90 H 08/25/23 07:59 Pulse Ox 94 08/25/23 07:59 Oxygen Delivery Method Room Air 08/25/23 07:59 BMI result Body Mass Index 37.9 Tobacco/Smoking Status: Tobacco use Status Tobacco use date assessed 08/25/23 08/25/23 08:02 Patient Tobacco Use Status Never used Tobacco 08/25/23 08:02 e-Cigarette/Vaping Use Never Used 08/25/23 08:02 PHQ-9: PHQ-9 Score PHQ-9: Total score 0 08/25/23 08:02 Depression Screening Interpretation: Negative Thrive Assessment: Date of Thrive Assessment Date Thrive assessed 08/25/23 08/25/23 08:02 Currently or been in a relationship where the following occur: No concerns reported Const General: no acute distress HENMT Ears: hearing grossly normal bilaterally General nose exam: Normal external nose present Face and sinus: Yes normal facial exam Throat: Yes posterior oropharynx normal Eyes General: appearance normal, both eyes and all related structures Neck Neck: Yes no lymphadenopathy and Yes supple Resp Effort & Inspection: normal respiratory effort Auscultation: clear to auscultation bilaterally Cardio Rhythm: regular rhythm Heart sounds: S1 normal heart sound present and S2 normal heart sound present GI Inspection: Yes normal to inspection Palpation (GI): Soft to palpation, Tenderness to palpation present (GI) in the RUQ and no guarding Auscultation: normal bowel sounds Assessment and Plan Assessment & Plan (1) Normal colonoscopy: Onset Date: ~06/08/18 Comment: Dr. Jaimes, repeat 5 yrs, personal hx of polyps (2) HTN (hypertension): Code(s): I10 - Essential (primary) hypertension Plan: Patient will start olmesartan with hydrochlorothiazide 20/12.5 mg daily and will obtain fasting blood work before next appointment (3) Annual physical exam: Comment: well-balanced diet regular exercise and weight loss discussed with the patient Code(s): Z00.00 - Encounter for general adult medical examination without abnormal findings Plan: Well-balanced diet regular physical activity weight loss discussed with the patient. She is up-to-date with the mammogram and colonoscopy. (4) Dysplastic nevi: Code(s): D23.9 - Other benign neoplasm of skin, unspecified Plan: Referred to dermatology (5) Plantar fasciitis: Code(s): M72.2 - Plantar fascial fibromatosis Plan: Referred to enterprise systems engineer (6) RUQ abdominal pain: Code(s): R10.11 - Right upper quadrant pain Plan: for a chronic right upper quadrant abdominal pain ultrasound will be obtained to rule out gallstones. (7) BEATTY (dyspnea on exertion): Code(s): R06.09 - Other forms of dyspnea Plan: Obtain echocardiogram increase physical activity weight loss discussed with the patient follow-up in 3 months Orders: Orders CA echo transthoracic complete Today R06.09 - Other forms of dyspnea Lipid Panel 3 Months I10 - Essential (primary) hypertension, R06.09 - Other forms of dyspnea, Z00.00 - Encounter for general adult medical examination without abnormal findings Hemoglobin A1c 3 Months I10 - Essential (primary) hypertension, R06.09 - Other forms of dyspnea, Z00.00 - Encounter for general adult medical examination without abnormal findings TSH reflex Free T4 3 Months I10 - Essential (primary) hypertension, R06.09 - Other forms of dyspnea, Z00.00 - Encounter for general adult medical examination without abnormal findings Vitamin D 25-OH Total 3 Months I10 - Essential (primary) hypertension, R06.09 - Other forms of dyspnea, Z00.00 - Encounter for general adult medical examination without abnormal findings UA w Microscopic 3 Months I10 - Essential (primary) hypertension, R06.09 - Other forms of dyspnea, Z00.00 - Encounter for general adult medical examination without abnormal findings US abdomen complete Today R10.11 - Right upper quadrant pain Comprehensive [place]. Panel Fast 3 Months I10 - Essential (primary) hypertension, R06.09 - Other forms of dyspnea, Z00.00 - Encounter for general adult medical examination without abnormal findings Complete Blood Count Auto Diff 3 Months I10 - Essential (primary) hypertension, R06.09 - Other forms of dyspnea, Z00.00 - Encounter for general adult medical examination without abnormal findings Vitamin B12 and Folate 3 Months I10 - Essential (primary) hypertension, R06.09 - Other forms of dyspnea, Z00.00 - Encounter for general adult medical examination without abnormal findings Referrals Dermatology Referral D23.9 - Other benign neoplasm of skin, unspecified Podiatry Referral M72.2 - Plantar fascial fibromatosis Vascular Surgery Referral I83.893 - Varicose veins of bilateral lower extremities with other complications Medications: New olmesartan-hydrochlorothiazide 20-12.5 mg 1 tab PO DAILY 30 tabs 3RF Discontinued amlodipine 7.5 mg tab daily Discontinued Reason: Doctor's Order 7.5 mg (1.5 x 5 mg) PO DAILY 135 tabs 3RF Coding Level of Care Code Est Pt Prev Care 40-64y(16964) Diagnoses Normal colonoscopy HTN (hypertension) I10 Annual physical exam Z00.00 Dysplastic nevi D23.9 Plantar fasciitis M72.2 RUQ abdominal pain R10.11 BEATTY (dyspnea on exertion) R06.09
== END 2023-08-25 10:24 | disposition home or self-care (01) ==
PROVIDERS: PCP Internal Medicine; Visit Provider Internal Medicine
DX: I10 Essential (primary) hypertension (principal); Z00.00 Encounter for general adult medical examination without abnormal findings; D23.9 Other benign neoplasm of skin, unspecified; M72.2 Plantar fascial fibromatosis; R10.11 Right upper quadrant pain; R06.09 Other forms of dyspnea
CPT/HCPCS: 99396

== ENCOUNTER 2023-09-03 08:33 | Outpatient (REF) | payer OTHER, SELFPAY ==
--- NOTE | ~2023-09-03 | US_ITS ---
EXAMINATION: US ABDOMEN LIMITED CLINICAL INFORMATION: Right upper quadrant pain. COMPARISON: Ultrasound abdomen complete 09/05/2022 and 10/08/2021. CT abdomen and pelvis 03/20/2020. TECHNIQUE: Real-time imaging of the right upper quadrant abdominal viscera. FINDINGS: PANCREAS: Visualized portions of the pancreas are unremarkable, the tail is not well visualized. LIVER: The liver is normal in size. The liver contour is normal. Increased hepatic echogenicity suggesting hepatic steatosis. No focal hepatic lesion. There is no intrahepatic biliary duct dilatation seen. GALLBLADDER: Normal. The gallbladder is physiologically distended without evidence of stones, sludge, polyps, wall thickening or pericholecystic fluid. COMMON BILE DUCT: Normal in caliber measuring 0.4 cm in diameter. RIGHT KIDNEY: Normal. No hydronephrosis. No renal calculi or focal parenchymal lesions. The kidney measures 9.7 cm in maximum dimension. FREE FLUID: None. US/US abdomen limited IMPRESSION: Increased hepatic echogenicity suggesting hepatic steatosis.
== END 2023-09-03 08:34 | disposition home or self-care (01) ==
LOC: HO.HMGCX 08:33
PROVIDERS: PCP Internal Medicine; Visit Provider Internal Medicine
DX: R10.11 Right upper quadrant pain (principal)
CPT/HCPCS: 76705

== ENCOUNTER → 2023-09-10 07:51 | Outpatient (REF) | payer OTHER, SELFPAY ==
--- NOTE | 2023-09-10 07:54 | CA_ITS ---
Transthoracic Echocardiogram Patient (Last, First, Middle): Lizz Martínez, Gender: Female Date of : 1960 Age: 62 Procedure Date: 09/10/2023 Procedure Type: Transthoracic Echocardiogram Location: OP Height: 157.48 cm Weight: 90.27 kg BSA: 1.91 m2 Heart Rate: 68 bpm BP: 138 / 85 mmHg Booking Supervisor: HUBER Nguyen MD: Jacy Llanos MD Labor Employment Associate: Roberto Carlos Jaramillo MD Symptoms: R06.09 - Other forms of dyspnea Study Quality: Fair ECG Rhythm: Sinus Conclusions: - 1. Normal LV ejection fraction of 60-65% with mild LVH with grade 1 diastolic dysfunction 2. Normal cardiac valvular Doppler 3. Normal RV systolic pressure 4. No gross pericardial effusion Findings Left Ventricle Normal left ventricular size and systolic function. There is mildly increased left ventricular wall thickness. The visually estimated ejection fraction is between 60-65%. Spectral Doppler is indicative of an impaired relaxation filling pattern. E/E prime ratio is <8, consistent with normal filling pressures. Evidence suggests grade I (mild) diastolic dysfunction. Right Ventricle Normal right ventricular cavity size and systolic function. Atria The left atrium is likely dilated. Interatrial shunt cannot be excluded. The right atrium is normal in size. Aortic Valve The aortic valve was not well visualized. There is mild calcification of the aortic valve. There is no aortic valve stenosis. There is no aortic valve regurgitation. Mitral Valve Normal mitral valve structure and function. There is trace mitral valve regurgitation. There is no mitral valve stenosis. Tricuspid Valve Likely normal tricuspid valve structure and function. There is trace tricuspid valve regurgitation. The right ventricular systolic pressure is normal. The right ventricular systolic pressure is 27 mmHg. Normal right atrial pressure. There is no evidence of pulmonary hypertension. Great Vessels All visible segments of the aorta are normal in size. The pulmonary artery was not well visualized. There is no dilatation of the ascending aorta measuring 3.00 cm. Venous The inferior vena cava is normal in size and collapses greater than 50% with inspiration. Pericardium/Pleural There is no evidence of pericardial effusion. Prior Study Comparison No prior study available for comparison. Measurements 2D Linear Measurements IVSd: 1.24 0.6-0.9/0.6-1.0 cm LVIDd: 4.58 3.9-5.3/4.2-5.9 cm LVIDd Index: 2.40 2.4-3.2/2.2-3.1 cm/m2 LVIDs: 2.86 2.0-3.6 cm LVPWd: 1.05 0.7-1.1 cm LA Diam: 3.70 2.7-3.8/3.0-4.0 cm LAIDs Index: 1.94 1.5-2.3 cm/m2 LV Mass: 237.30 67-162/88-224 g LV Mass Index: 124.24 43-95/49-115 g/m2 LVOT Diam: 1.80 3.0+(-)1.3 cm 2D Systolic Function EF 4C: 63.60 >55% EF 2C: 59.20 >55% EF BiP: 61.90 >55% Mitral Valve MV Pk E: 0.75 MV PK A: 0.89 MV Decel Time: 235.00 E/A: 0.90 E'Lateral: 11.60 E'Medial: 6.09 E/E' Med: 12.40 E/E' Lat: 6.50 PHT: 69.00 MVA PHT: 3.19 Decel [place]: 3.21 Aortic Valve AoV Pk Андрей: 1.48 AoV Mn Андрей: 1.02 AoV VTI: 0.35 AoV Pk Grad: 9.00 Aov Mn Grad: 5.00 REE Cont.VTI: 2.08 LVOT LVOT Pk Андрей: 1.25 LVOT Mn Андрей: 0.85 LVOT VTI: 0.29 LVOT Pk Grad: 6.00 LVOT Mn Grad: 3.00 LVOT Diam: 1.80 LVOT Area: 2.54 Diastolic Function MV Pk E: 0.75 MV Pk A: 0.89 E/A: 0.90 E'Medial: 6.09 E/E' Med: 12.40 E' Laterial: 11.60 E/E' Lat: 6.50 Right Ventricle TAPSE (mm): 21.30 TVS' Андрей: 6.96 Tricuspid Valve TR Pk Андрей: 2.47 TR Pk Grad: 24.00 RA Press: 3.00 RVSP: 27.00 Great Vessels Aorta Sinus of Valsalva: 3.00 2.0-3.5 cm Ao Asc: 3.00 2.1-3.4 cm Pulmonary Valve PV Pk Андрей: 0.86 Peak PV Grad: 3.00 Updated in Other Vendor System with Status of Final Roberto Carlos Jaramillo MD electronically signed on 09/10/2023 1:23:44 PM with status of Final
== END ==
LOC: HO.CARD 07:51
PROVIDERS: PCP Internal Medicine; Visit Provider Internal Medicine
DX: R06.09 Other forms of dyspnea (principal)
CPT/HCPCS: 93306

== ENCOUNTER → 2023-09-10 07:54 | Outpatient (BNV) | payer OTHER, SELFPAY | PROVIDERS: PCP Internal Medicine; Visit Provider Internal Medicine Cardiovascular Disease | DX: I35.8 Other nonrheumatic aortic valve disorders (principal); I51.89 Other ill-defined heart diseases | CPT/HCPCS: 93306 ==